=== PATIENT | female | born 1980 | race Caucasian/White ===

== ENCOUNTER 2023-01-24 18:37 | Inpatient (IN) | payer OTHER ==
[2023-01-24 19:14] VITALS: BMI 28.1
[2023-01-24] MEDS ORDERED: guaiFENesin 600 MG TABLET.ER (FP) PO PRN (19:48)
[2023-01-24] MEDS ORDERED: POLYETHYLENE GLYCOL (HEALTHYLAX) 3350 17 GM PACKET PO PRN (19:48)
[2023-01-24] MEDS ORDERED: DICYCLOMINE HCL 10 MG CAPSULE PO PRN (19:48)
[2023-01-24] MEDS ORDERED: NALOXONE HCL (KLOXXADO) 8 MG SPRAY NS PRN (19:48)
[2023-01-24] MEDS ORDERED: MAG HYDROX/AL HYDROX/SIMETH 30 ML UNIT-DOSE CUP PO PRN (19:48)
[2023-01-24] MEDS ORDERED: ACETAMINOPHEN 325 MG TABLET (FP) PO PRN (19:48)
[2023-01-24] MEDS ORDERED: BENZONATATE 200 MG CAPSULE PO PRN (19:48)
[2023-01-24] MEDS ORDERED: MAGNESIUM HYDROX 2400MG/30ML ORAL SUSPENSION 30 ML CUP PO PRN (19:48)
[2023-01-24] MEDS ORDERED: NICOTINE POLACRILEX 2 MG GUM BUC PRN (19:48)
[2023-01-24] MEDS ORDERED: NALOXONE HCL 0.4 MG/ML VIAL IM PRN (19:48)
[2023-01-24] MEDS ORDERED: IBUPROFEN 400 MG TABLET (FP) PO PRN (19:48)
[2023-01-24] MEDS ORDERED: LOPERAMIDE HCL 2 MG CAPSULE PO PRN (19:48)
[2023-01-24] MEDS ORDERED: BISMUTH SUBSALICYLATE 524 MG/30 ML PO PRN (19:48)
[2023-01-24] MEDS ORDERED: BENZOCAINE/MENTHOL (CHLORASEPTIC ) LOZENGE MM PRN (19:48)
[2023-01-24] MEDS: THIAMINE HCL 100 MG TABLET (FP) PO SCH (22:25)
[2023-01-24] MEDS: MELATONIN 5 MG TABLETS PO SCH (22:25)
[2023-01-24] MEDS: METHOCARBAMOL 500 MG TABLET PO PRN (22:27)
[2023-01-24] MEDS: hydrOXYzine PAMOATE 25 MG CAPSULE (FP) PO PRN (22:49)
[2023-01-25] MEDS: METHOCARBAMOL 500 MG TABLET PO PRN ×2 (07:57→22:42)
[2023-01-25] MEDS: PRENATAL VITAMINS W/ FOLIC ACID TABLET (FP) PO SCH (10:44)
[2023-01-25] MEDS ORDERED: methaDONE HCL 10 MG TABLET (FOR DETOX USE ONLY) PO ONE (10:45)
[2023-01-25] MEDS: NICOTINE 14 MG/24 HOURS TOPICAL PATCH TD SCH (10:45)
[2023-01-25] MEDS: THIAMINE HCL 100 MG TABLET (FP) PO SCH (22:41)
[2023-01-25] MEDS: MELATONIN 5 MG TABLETS PO SCH (22:41)
[2023-01-25] MEDS: IBUPROFEN 600 MG TABLET (FP) PO PRN (22:43)
[2023-01-26] MEDS: ONDANSETRON *ODT* 4 MG TABLET SL PRN ×2 (04:32→14:47)
[2023-01-26] MEDS: METHOCARBAMOL 500 MG TABLET PO PRN ×2 (09:09→22:19)
[2023-01-26] MEDS: PRENATAL VITAMINS W/ FOLIC ACID TABLET (FP) PO SCH (09:10)
[2023-01-26] MEDS: NICOTINE 14 MG/24 HOURS TOPICAL PATCH TD SCH (09:11)
[2023-01-26] MEDS: IBUPROFEN 600 MG TABLET (FP) PO PRN ×2 (14:47→22:19)
[2023-01-26] MEDS: cloNIDine HCL 0.1 MG TABLET PO PRN (22:19)
[2023-01-26] MEDS: THIAMINE HCL 100 MG TABLET (FP) PO SCH (22:19)
[2023-01-26] MEDS: MELATONIN 5 MG TABLETS PO SCH (22:19)
[2023-01-27] MEDS: ONDANSETRON *ODT* 4 MG TABLET SL PRN ×2 (02:17→18:37)
[2023-01-27] MEDS: cloNIDine HCL 0.1 MG TABLET PO PRN ×3 (05:18→23:04)
[2023-01-27] MEDS: PRENATAL VITAMINS W/ FOLIC ACID TABLET (FP) PO SCH (09:27)
[2023-01-27] MEDS: NICOTINE 14 MG/24 HOURS TOPICAL PATCH TD SCH (09:28)
[2023-01-27] MEDS: METHOCARBAMOL 500 MG TABLET PO PRN ×2 (09:29→19:10)
[2023-01-27] MEDS ORDERED: methaDONE HCL 10 MG TABLET (FOR DETOX USE ONLY) PO ONE (10:00)
[2023-01-27] MEDS: hydrOXYzine PAMOATE 25 MG CAPSULE (FP) PO PRN ×2 (10:40→19:10)
[2023-01-27] MEDS: IBUPROFEN 600 MG TABLET (FP) PO PRN (20:56)
[2023-01-27] MEDS: MELATONIN 5 MG TABLETS PO SCH (23:04)
[2023-01-27] MEDS: THIAMINE HCL 100 MG TABLET (FP) PO SCH (23:04)
[2023-01-28] MEDS: METHOCARBAMOL 500 MG TABLET PO PRN (02:26)
[2023-01-28] MEDS: IBUPROFEN 600 MG TABLET (FP) PO PRN (02:26)
[2023-01-28] MEDS: hydrOXYzine PAMOATE 25 MG CAPSULE (FP) PO PRN (02:28)
[2023-01-28] MEDS ORDERED: hydrOXYzine PAMOATE 25 MG CAPSULE (FP) PO PRN (08:37)
[2023-01-28] MEDS ORDERED: METHOCARBAMOL 500 MG TABLET PO PRN (08:40)
[2023-01-28] MEDS: PRENATAL VITAMINS W/ FOLIC ACID TABLET (FP) PO SCH (09:19)
[2023-01-28] MEDS: NICOTINE 14 MG/24 HOURS TOPICAL PATCH TD SCH (09:19)
[2023-01-28 10:11] VITALS: BP 110/81; PULSE 118; RESP 18; TEMP 97.1
[2023-01-29] MEDS ORDERED: methaDONE HCL 10 MG TABLET (FOR DETOX USE ONLY) PO ONE (10:00)
== END 2023-01-28 10:07 | disposition left against medical advice (07) | DRG 770 ==
LOC: YASAS 18:37 → EDBD 18:37 → Y3N 19:56
PROVIDERS: ADMIT Allergy & Immunology; ATTEND Surgery
PROC: HZ2ZZZZ Detoxification Services for Substance Abuse Treatment (ICD-10-PCS; principal; 2023-01-24)
DX: F11.23 Opioid dependence with withdrawal (principal); F14.20 Cocaine dependence, uncomplicated; F17.210 Nicotine dependence, cigarettes, uncomplicated; F31.9 Bipolar disorder, unspecified; F19.24 Other psychoactive substance dependence with psychoactive substance-induced mood disorder; Z88.0 Allergy status to penicillin; Z91.013 Allergy to seafood
CPT/HCPCS: 81025; 87811; 93005; 93010; C9803-CS; Q0162; U0003; U0005